=== PATIENT | male | born 1980 | race Caucasian/White ===

== ENCOUNTER 2025-01-23 12:19 | Observation (INO) ==
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
[2025-01-23 14:31] LABS: MEAN PLATELET VOLUME 8.6 fL (7.4-11.0); RED CELL DISTRIBUTION WIDTH 13.4 % (11.6-16.5)
[2025-01-23 14:32] LABS: BLOOD/HEMOGLOBIN,URINE 1+ (NEGATIVE); LEUKOCYTE ESTERASE ,URINE NEGATIVE (NEGATIVE); NITRITES,URINE NEGATIVE (NEGATIVE)
[2025-01-23 14:40] LABS: COR NA(FOR HYPERGLY) 140 mmol/L (136-145); CREATININE 0.86 mg/dL (0.70-1.30); eGFR NON BLACK RACES > 60 (>60)
[2025-01-23 14:40] LABS: APPEARANCE,URINE CLEAR (CLEAR); SQUAMOUS EPITHELIAL CELL,UR NEGATIVE /HPF (NEGATIVE)
--- NOTE | 2025-01-23 16:40 | CT ---
EXAM: ABDOMEN/PELVIS W/O CON HISTORY: ABDOMINAL PAIN; COMPARISON: December 05, 2024 TECHNIQUE: Non-contrasted axial CT images of the abdomen and pelvis were obtained and reformatted into coronal and sagittal planes for further evaluation. Radiation dose: 813.15 mGy-cm total DLP FINDINGS: Lung bases are clear. Stomach appears normal. Solid visceral organs of the upper abdomen are unremarkable. Status post cholecystectomy. No intra or extrahepatic biliary dilatation. Unremarkable appearance of the kidneys. No hydronephrosis, hydroureter or ureteral calculus. Unremarkable appearance of the urinary bladder. Normal appearance of the small and large bowel. Small to moderate stool burden in the colon. Reproductive structures are unremarkable. No evidence of acute appendicitis. No pneumoperitoneum. No significant fluid collection. No adenopathy. No acute osseous abnormality. IMPRESSION: 1. No acute intra-abdominal abnormality detected. 2. Small to moderate stool burden in the colon. THIS IS AN ELECTRONICALLY VERIFIED FINAL REPORT 01/23/2025 4:37 PM - Electronically signed by Paulo Bravo MD
[2025-01-23] MEDS: PROTONIX INJ 40 MG VIAL IVP ONE (19:08)
[2025-01-23] MEDS: NS 1,000 ML IV 1,000 ML IV SCH (19:08)
[2025-01-23] MEDS: DEMEROL INJ IVP ONE (19:08)
[2025-01-23] MEDS ORDERED: ZOFRAN INJ 4 MG VIAL IVP PRN (21:08)
[2025-01-23 22:41] VITALS: BMI 38.5
[2025-01-24 05:08] LABS: MEAN PLATELET VOLUME 8.6 fL (7.4-11.0); RED CELL DISTRIBUTION WIDTH 13.5 % (11.6-16.5)
[2025-01-24 05:18] LABS: COR CA(FOR HYPOALB) 9.0 mg/dL (8.5-10.1); COR NA(FOR HYPERGLY) 145 mmol/L (136-145); CREATININE 0.87 mg/dL (0.70-1.30); eGFR NON BLACK RACES > 60 (>60)
[2025-01-24] MEDS: DEMEROL INJ IVP PRN (08:53)
[2025-01-24 09:17] LABS: BLOOD/HEMOGLOBIN,URINE NEGATIVE (NEGATIVE); LEUKOCYTE ESTERASE ,URINE NEGATIVE (NEGATIVE); NITRITES,URINE NEGATIVE (NEGATIVE)
[2025-01-24 09:20] LABS: APPEARANCE,URINE CLEAR (CLEAR)
[2025-01-24 09:25] LABS: SQUAMOUS EPITHELIAL CELL,UR NEGATIVE /HPF (NEGATIVE)
[2025-01-24] MEDS: REGLAN TAB 5 MG PO SCH (11:10)
[2025-01-24] MEDS: MAG-OX TAB PO SCH (12:37)
[2025-01-24] MEDS: K-DUR TAB 20 MEQ PO SCH (12:37)
--- NOTE | 2025-01-24 17:00 | DR.H&P ---
H&P History & Physical for Day of: H&P Date: 01/24/25 Chief Complaint Chief Complaint: Abdominal pain History of Present Illness History of Present Illness: Patient presented to the ER with nausea, vomiting, worsening abdominal pain, and diarrhea. He is on lactulose due to CHOW and recently diagnosed with chronic pancreatitis and liver disease at [place]. Had been constantly admitted to his local facility due to abdominal pain before being transferred to [facility]. He is an insulin-dependent diabetic. He reports that he has been able to avoid the hospital stay for the last couple of months with the changes made in [place]. His sugars have still been running 400-600 daily at home. His providers have had difficulty getting him an insulin pump due to his insurance. ER workup was relatively benign other than hyperglycemia and elevated amylase/lipase. ROS: Continued abdominal pain, improved. Poor appetite. Malaise. Denies fever, chills, headache, vision change, rash, hematochezia, hemoptysis, hematemesis, or dysuria. PE: Obese male in no acute distress. Appears tired. Head NCAT, EOMI, hearing intact conversation. Cervical range of motion full. Heart regular rate and rhythm with clear lungs. Belly is soft, nontender, with hyperactive bowel sounds. Mood and affect are appropriate for situation. Skin with good color and good turgor. Able to move all extremities equally well. Past Medical History Past Medical History: Arthritis, Diabetes, GERD and Gout Past Surgical History Surgical History: Cholecystectomy Family History Family Medical History: Diabetes Mellitus and Cancer Social History Does any household member use tobacco: No Alcohol Use: None Drug Use: None Medications Home Medications: Home Medications Medication Instructions Recorded Confirmed Type insulin glargine 100 unit/mL (3 45 unit subcut BID 01/23/25 History mL) subcutaneous pen (Lantus Solostar U-100 Insulin) levetiracetam 1,000 mg tablet 1,000 mg PO BID 12/05/24 01/23/25 History dapagliflozin propanediol 5 mg 5 mg PO QAM 01/23/25 History tablet (Farxiga) gabapentin 300 mg capsule 300 mg PO BID 01/23/2501/23 History insulin lispro 100 unit/mL See Rx Instructions .Route .COMPLEX 01/23/25 01/23/25 History subcutaneous solution lactulose 10 gram/15 mL oral 15 ml PO QDAY PRN 5 01/23/25 History solution (Enulose) methocarbamol 500 mg tablet 750 mg PO Q4H PRN 01/23/25 01/23/25 History ondansetron 4 mg disintegrating 4 mg PO QAM 01/23/25 0 01/23/25 History tablet phenytoin sodium extended 100 mg 100 mg PO BID 5 01/23/25 History capsule Allergies Allergies Allergy/AdvReac Type Severity Reaction Status Date / Time bee venom protein (honey bee) Allergy Verified 01/23/25 12:20 lidocain patch Allergy Uncoded 01/23/25 12:20 Labs 01/24/25 04:18 01/24/25 04:18 Labs: Laboratory WBC 6.4 X10^3/uL (3.6-10.0) 01/24/25 04:18 RBC 4.85 X10^6/uL (4.7-6.0) 01/24/25 04:18 Hgb 14.8 g/dL (13.5-18.0) 01/24/25 04:18 Hct 42.4 % (42.0-54.0) 01/24/25 04:18 MCV 87.5 fL (80.0-100.0) 01/24/25 04:18 MCH 30.5 pg (27.0-34.0) 01/24/25 04:18 MCHC 34.9 g/dL (33.0-35.0) 01/24/25 04:18 RDW 13.5 % (11.6-16.5) 01/24/25 04:18 Plt Count 240 X10^3/uL (150.0-450.0) 01/24/25 04:18 MPV 8.6 fL (7.4-11.0) 01/24/25 04:18 Neut % (Auto) 58.1 % (42.0-75.0) 01/24/25 04:18 Lymph % (Auto) 33.9 % (21.0-51.0) 01/24/25 04:18 Barren % (Auto) 5.0 % (0.0-13.0) 01/24/25 04:18 Eos % (Auto) 2.5 % (0.9-2.9) 01/24/25 04:18 Baso % (Auto) 0.5 % (0.2-1.0) 01/24/25 04:18 Neut # (Auto) 3.7 x10^3/uL (2.2-4.8) 01/24/25 04:18 Lymph # (Auto) 2.2 X10^3/uL (1.3-2.9) 01/24/25 04:18 Barren # (Auto) 0.3 x10^3/uL (0.3-0.8) 01/24/25 04:18 Eos # (Auto) 0.2 x10^3/uL (0.0-0.2) 01/24/25 04:18 Baso # (Auto) 0.0 X10^3/uL (0.0-0.1) 01/24/25 04:18 Absolute Nucleated RBC 0.1 /100WBC 01/24/25 04:18 Sodium 144 mmol/L (136-145) 01/24/25 04:18 Corrected Sodium 145 mmol/L (136-145) 01/24/25 04:18 Potassium 3.3 mmol/L (3.5-5.1) L 01/24/25 04:18 Chloride 107 mmol/L (98-107) 01/24/25 04:18 Carbon Dioxide 30.7 mmol/L (21-32) 01/24/25 04:18 BUN 12 mg/dL (7-18) 01/24/25 04:18 Creatinine 0.87 mg/dL (0.70-1.30) 01/24/25 04:18 Est GFR (MDRD) Af Amer > 60 (>60) 01/24/25 04:18 Est GFR (MDRD) Non-Af > 60 (>60) 01/24/25 04:18 Glucose 123 mg/dL (65-99) H 01/24/25 04:18 POC Glucose (mg/dL) 182 mg/dL (65-99) H 01/24/25 16:21 Calcium 8.4 mg/dL (8.5-10.1) L 01/24/25 04:18 Corrected Calcium 9.0 mg/dL (8.5-10.1) 01/24/25 04:18 Magnesium 1.8 mg/dL (2.0-2.9) L 01/24/25 04:18 Total Bilirubin 0.40 mg/dL (0.2-1.0) 01/24/25 04:18 AST 13 Units/L (15-37) L 01/24/25 04:18 ALT 17 Units/L (12-78) 01/24/25 04:18 Alkaline Phosphatase 98 Units/L (46-116) 01/24/25 04:18 B-Natriuretic Peptide 25.0 pg/mL (0-79) 01/23/25 14:20 Total Protein 7.8 g/dL (6.4-8.2) 01/24/25 04:18 Albumin 3.3 g/dL (3.4-5.0) L 01/24/25 04:18 Globulin 4.5 g/dL (2.5-4.5) 01/24/25 04:18 Albumin/Globulin Ratio 0.7 Ratio (1.1-2.1) L 01/24/25 04:18 Amylase 192 Units/L (25-115) H 01/23/25 14:20 Lipase 53 Units/L (16-77) 01/24/25 04:18 Specimen Type Clean catch urine 01/24/25 09:05 Urine Color Pale yellow (YELLOW) 01/24/25 09:05 Urine Appearance Clear (CLEAR) 01/24/25 09:05 Urine pH 7.0 (5.0 - 8.0) 01/24/25 09:05 Ur Specific Shepherd 1.015 (1.000-1.030) 01/24/25 09:05 Urine Protein 1+ (NEGATIVE) 01/24/25 09:05 Urine Glucose (UA) 4+ (NEGATIVE) 01/24/25 09:05 Urine Ketones Negative (NEGATIVE) 01/24/25 09:05 Urine Blood Negative (NEGATIVE) 01/24/25 09:05 Urine Nitrite Negative (NEGATIVE) 01/24/25 09:05 Urine Bilirubin Negative (NEGATIVE) 01/24/25 09:05 Urine Urobilinogen Normal (NORMAL) 01/24/25 09:05 Ur Leukocyte Esterase Negative (NEGATIVE) 01/24/25 09:05 Urine RBC 0-2 /HPF (0-3) 01/24/25 09:05 Urine WBC None seen /HPF (0-5) 01/24/25 09:05 Ur Squamous Epith Cells Negative /HPF (NEGATIVE) 01/24/25 09:05 Urine Bacteria Trace /HPF (NEGATIVE) 01/24/25 09:05 Ur Culture Indicated? No/not indicated 01/24/25 09:05 Physical Exam Vital Signs: Vital Signs Temperature 97.7 F Temperature 97.8 F Pulse Rate [Left Brachial] 79 Pulse Rate [Left Brachial] 85 Respiratory Rate 21 Respiratory Rate 20 Respiratory Rate 18 Blood Pressure [Left Arm] 140/97 Blood Pressure [Left Arm] 137/91 O2 Sat by Pulse Oximetry 97 O2 Sat by Pulse Oximetry 95 Assessment/Plan (1) Acute on chronic pancreatitis: Narrative Support Text: Low-fat diet, IV hydration, pain control. Status: Acute (2) Nausea & vomiting: Qualifiers: Vomiting type: unspecified Qualified Code(s): R11.2 - Nausea with vomiting, unspecified Narrative Support Text: See below Status: Acute (3) Diarrhea: Qualifiers: Diarrhea type: unspecified type Qualified Code(s): R19.7 - Diarrhea, unspecified Narrative Support Text: Viral versus secondary to acute on chronic pancreatitis. Continue antiemetics. Continue hydration. Allow permissive diarrhea. Status: Acute (4) Type 2 diabetes mellitus with hyperglycemia: Qualifiers: Diabetes mellitus terminal system operator insulin use: with terminal system operator use Qualified Code(s): E11.65 - Type 2 diabetes mellitus with hyperglycemia; Z79.4 - terminal system operator (current) use of insulin Narrative Support Text: Continue meds Status: Chronic (5) Morbid obesity: Narrative Support Text: Weight loss recommended. Consider GLP-1 in the future for his CHOW and DM 2. 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
[2025-01-24] MEDS: NovoLIN R (or HumuLIN R) SUBCUT PRN (17:03)
[2025-01-24] MEDS: MAGNESIUM SULFATE 1 GRAM/100 mL PREMIX 1 G/100 ML BAG IV SCH (18:45)
[2025-01-24] MEDS: K-RIDER 10 MEQ/100 ML WATER 10 MEQ/100 ML BAG IV SCH (18:45)
[2025-01-24] MEDS: CONSULT PHARMACY - POTASSIUM & MAGNESIUM XX SCH (18:46)
[2025-01-24] MEDS: SNACK - Diabetic Appropriate PO SCH (20:00)
[2025-01-25 05:12] LABS: RED CELL DISTRIBUTION WIDTH 13.4 % (11.6-16.5)
[2025-01-25 05:19] LABS: COR NA(FOR HYPERGLY) 143 mmol/L (136-145); CREATININE 0.74 mg/dL (0.70-1.30); eGFR NON BLACK RACES > 60 (>60)
[2025-01-25 05:20] LABS: MEAN PLATELET VOLUME 9.6 fL (7.4-11.0)
[2025-01-25 05:30] LABS: PLATELET MORPHOLOGY COMMENT NORMAL (NORMAL)
[2025-01-25] MEDS: MORPHINE SULFATE INJ 2 MG INJ IVP PRN (07:35)
[2025-01-25 08:11] VITALS: TEMP 97.6
[2025-01-25 08:38] VITALS: RESP 20
[2025-01-25 12:38] VITALS: BP 123/78; PULSE 77; O2SAT 97
== END 2025-01-25 13:45 | disposition home or self-care (01) ==
LOC: MED/SURG 12:19 → ER 12:19 → MED/SURG 21:00
PROVIDERS: ADMIT Family Medicine; ATTEND Family Medicine
DX: E83.42 Hypomagnesemia; E87.6 Hypokalemia; K86.1 Other chronic pancreatitis; R19.7 Diarrhea, unspecified; K59.09 Other constipation; E66.01 Morbid (severe) obesity due to excess calories; K85.80 Other acute pancreatitis without necrosis or infection; K74.69 Other cirrhosis of liver; R11.2 Nausea with vomiting, unspecified; Z68.38 Body mass index [BMI] 38.0-38.9, adult; E11.65 Type 2 diabetes mellitus with hyperglycemia; K75.81 Nonalcoholic steatohepatitis (NASH); R26.89 Other abnormalities of gait and mobility; K21.9 Gastro-esophageal reflux disease without esophagitis; Z59.86 Financial insecurity; R10.84 Generalized abdominal pain; Z79.4 Long term (current) use of insulin; M25.551 Pain in right hip